=== PATIENT | female | born 1970 ===

== ENCOUNTER 2020-07-05 16:44 | Emergency (ER) | payer SELFPAY ==
[~2020-07-05] VITALS: Ht 162.6 cm; Wt 81.6 kg
[2020-07-05 17:59] LABS: APPEARANCE,URINE CLOUDY; BILIRUBIN, URINE NEGATIVE (NEGATIVE); GLUCOSE, URINE (UA) NEGATIVE (NEGATIVE); KETONES,URINE NEGATIVE (NEGATIVE); LEUKOCYTE ESTERASE ,URINE 1+ (NEGATIVE); NITRITE,URINE NEGATIVE (NEGATIVE); PH,URINE 6.5 (4.5-8.0); PROTEIN,URINE 2+ (NEGATIVE); UROBILINOGEN,URINE NORMAL MG/DL (0.0-1.0)
[2020-07-05 18:02] LABS: COLOR,URINE RED
[2020-07-05 18:06] LABS: ANION GAP 7 mmol/L (5-15); BLOOD UREA NITROGEN 13 mg/dL (7-18); CALCIUM 9.5 MG/DL (8.5-10.1); CARBON DIOXIDE 28 MMOL/L (21-32); CHLORIDE 104 MMOL/L (98-107); CREATININE 0.8 MG/DL (0.55-1.30); POTASSIUM 4.1 MMOL/L (3.5-5.1); SODIUM 139 MMOL/L (136-145)
[2020-07-05 18:09] LABS: BASOPHILS % (AUTO) 1.4 % (0.0-2.0); EOSINOPHILS % (AUTO) 1.4 % (0.0-3.0); HEMATOCRIT 25.4 % (37.0-47.0); HEMOGLOBIN 8.2 G/DL (12.0-16.0); LYMPHOCYTES % (AUTO) 40.9 % (20.0-45.0); MEAN CORPUSCULAR VOLUME 83 FL (80-99); NEUTROPHILS % (AUTO) 48.4 % (45.0-75.0); PLATELET COUNT 306 K/UL (150-450); RED BLOOD COUNT 3.07 M/UL (4.20-5.40); RED CELL DISTRIBUTION WIDTH 16.3 % (11.6-14.8); WHITE BLOOD COUNT 5.6 K/UL (4.8-10.8)
[2020-07-05 18:11] LABS: ALANINE AMINOTRANSFERASE 26 U/L (12-78); ALBUMIN 3.5 G/DL (3.4-5.0); ALBUMIN/GLOBULIN RATIO 1.1 (1.0-2.7); ALKALINE PHOSPHATASE 66 U/L (46-116); ASPARTATE AMINO TRANSFERASE 16 U/L (15-37); BILIRUBIN,TOTAL 0.2 MG/DL (0.2-1.0)
--- NOTE | 2020-07-05 19:10 | NUR ---
ED Nurse Note: Patient walked into ED c/o pelvic pain onset for the last 3 days
[2020-07-05 19:20] VITALS: BP 139/71
--- NOTE | 2020-07-05 20:02 | Emergency Room Report ---
History of Present Illness General Chief Complaint: Female Urogenital Problems Source: Patient Present Illness HPI 49-year-old female with no known significant past medical history here complaining of 10 days of heavy vaginal bleeding and clotting. Patient reports that she stopped having her menses 6 months ago. Has not yet followed with hog raiser. Reports that about 10 days ago she started having heavy bleeding and clotting and feeling fatigue. Has not taken medication for symptom relief. Denies any abdominal pain or cramping. Denies nausea vomiting diarrhea. Denies chest pain, shortness of breath and headache. Complains of occasional body aches. Denies fever and chills. Allergies: Coded Allergies: No Known Allergies (Unverified , 07/05/20) COVID-19 Screening Contact w/high risk pt: No Experienced COVID-19 symptoms?: No COVID-19 Testing performed INCINERATOR OPERATOR: No Patient History Past Medical History: see triage record Past Surgical History: none Pertinent Family History: none Now: No Reviewed Nursing Documentation: PMH: Agreed; PSxH: Agreed Nursing Documentation-PMH Past Medical History: No Stated History Review of Systems All Other Systems: negative except mentioned in HPI Physical Exam Vital Signs Date Time Temp Pulse Resp B/P (MAP) Pulse Ox O2 Delivery O2 Flow Rate FiO2 07/05/20 17:04 98.4 92 18 139/71 (93) 98 Room Air Sp02 EP Interpretation: reviewed, normal General Appearance: normal inspection, well appearing, no apparent distress, alert, GCS 15, non-toxic Head: normocephalic, atraumatic Eyes: bilateral eye normal inspection, bilateral eye PERRL ENT: hearing grossly normal, normal pharynx, no angioedema, normal voice Neck: supple, thyroid normal, no meningismus, no bony tend Respiratory: lungs clear, normal breath sounds, no rhonchi, no respiratory distress, no retraction, no accessory muscle use, no wheezing Cardiovascular #1: regular rate, rhythm, no edema Cardiovascular #2: 2+ carotid (R), 2+ carotid (L), 2+ radial (R), 2+ radial (L), 2+ dorsalis pedis (R), 2+ dorsalis pedis (L) Gastrointestinal: soft, no mass, no organomegaly, no peritonitis, no bruit, non-distended Rectal: deferred Musculoskeletal: back normal, normal range of motion, digits/nails normal, no calf tenderness, pelvis stable, no lower extremity edema, non-tender Neurologic: alert, motor strength/tone normal, oriented x3, sensory intact, responsive, speech normal Psychiatric: judgement/insight normal, memory normal, mood/affect normal, no suicidal/homicidal ideation Skin: no rash Lymphatic: no adenopathy Medical Decision Making PA Attestation All diagnoses and treatment plans were reviewed and discussed with my supervising physician Dr. Gracia Diagnostic Impression: Primary Impression: Uterine fibroid Additional Impression: Symptomatic anemia ER Course 49-year-old female with no known significant past medical history here complaining of 10 days of heavy vaginal bleeding and clotting. Patient reports that she stopped having her menses 6 months ago. Has not yet followed with hog raiser. Reports that about 10 days ago she started having heavy bleeding and clotting and feeling fatigue. Has not taken medication for symptom relief. Denies any abdominal pain or cramping. Denies nausea vomiting diarrhea. Denies chest pain, shortness of breath and headache. Complains of occasional body aches. Denies fever and chills. Ddx considered but are not limited to: Uterine fibroids, ovarian cyst, premenopausal changes, ovarian carcinoma, symptomatic anemia, asymptomatic anemia, Vital signs: are WNL, pt. is afebrile H&PE are most consistent with: Large uterine fibroid, symptomatic anemia ORDERS: UA, urine cx, CBC, CMP, type and screen, pelvic ultrasound, ferrous sulfate ED INTERVENTIONS: NS bolus After realizing the patient had to wait 4 hours to be observed after administration of 1 unit of blood, patient refused to get any transfusion. Hemoglobin is 8.2. Since patient is symptomatic with active vaginal bleeding he was recommended to receive a unit of blood however patient refused to do so and will follow up with hog raiser. Patient asked for some resources gynecology also prescription for ferrous sulfate provided. DISCHARGE: At this time pt. is stable for d/c to home. Will provide printed patient care instructions, and any necessary prescriptions. Care plan and follow up instructions have been discussed with the patient prior to discharge. Patient advised to return to the emergency room for worsening symptoms. CT/MRI/US Diagnostic Results CT/MRI/US Diagnostic Results : Imaging Test Ordered: Pelvic ultrasound Impression COMPARISON: No relevant prior studies available. FINDINGS: Uterus/cervix: The uterus measures approximately 13.1 x 7.4 x 6.1 cm. The uterus is diffusely heterogeneous. There are multiple probable fibroids. Left fundal region and the mass measures 3.7 x 3.2 x 3.5 cm. Additional mass that is partially exophytic on the right measures 9.0 x 8.7 may 0.2 cm. Small nabothian cysts are present in the cervix. There is nonspecific thickening of the endometrium measuring approximately 12.5 mm. Small amount of fluid in the endocervical canal. Recommend nonemergent OVEN LOADER consultation. Right ovary: The right ovary was not visualized. Left ovary: The left ovary measures 2.6 x 2.2 x 2.8 cm. Negative for left ovarian torsion. Free fluid: No significant free fluid identified. Last Vital Signs Date Time Temp Pulse Resp B/P (MAP) Pulse Ox O2 Delivery O2 Flow Rate FiO2 07/05/20 19:20 98.4 79 18 139/71 98 Room Air Disposition: HOME, SELF-CARE Condition: Stable Scripts Ferrous Sulfate* (FERROUS SULFATE*) 325 Mg Tablet 325 MG ORAL TWICE A DAY for SUPPLEMENT, #60 TAB 0 Refills Prov: Kevin Johns 07/05/20 Referrals: NOT CHOSEN IPA/,REFERRING (PCP) Patient Instructions: Iron Deficiency Anemia, Adult, Uterine Fibroids, [id number] Additional Instructions: Take medication as directed, follow-up with hog raiser, increase oral hydration, worsening symptoms return to the emergency room Kevin Johns Jul 05, 2020 20:02
[2020-07-05] MEDS ORDERED: FERROUS SULFAT325 MG ORAL (20:05)
--- NOTE | 2020-07-05 20:08 | Diagnostic Imaging Report ---
EXAM: US Pelvis Transabdominal and Transvaginal, Complete CLINICAL HISTORY: PAIN TECHNIQUE: Real-time complete transabdominal and transvaginal pelvic ultrasound with image documentation. Transvaginal imaging was used for better evaluation of the endometrium and adnexa. COMPARISON: No relevant prior studies available. FINDINGS: Uterus/cervix: The uterus measures approximately 13.1 x 7.4 x 6.1 cm. The uterus is diffusely heterogeneous. There are multiple probable fibroids. Left fundal region and the mass measures 3.7 x 3.2 x 3.5 cm. Additional mass that is partially exophytic on the right measures 9.0 x 8. 7 may 0.2 cm. Small nabothian cysts are present in the cervix. There is nonspecific thickening of the endometrium measuring approximately 12.5 mm. Small amount of fluid in the endocervical canal. Recommend nonemergent ADMINISTRATIVE ACCOUNTANT consultation. Right ovary: The right ovary was not visualized. Left ovary: The left ovary measures 2.6 x 2.2 x 2.8 cm. Negative for left ovarian torsion. Free fluid: No significant free fluid identified.
[2020-07-05 20:16] VITALS: BP 139/71
--- NOTE | 2020-07-05 20:16 | NUR ---
ER DISCHARGE NOTE: Patient is cleared to be discharged per ERMD, pt is aox4, on room air, with stable vital signs. pt was given dc and prescription instructions, pt was able to verbalize understanding, pt id band and iv site removed without complications. pt is able to ambulate with steady gait. pt took all belongings.
== END 2020-07-05 20:16 | disposition home or self-care (01) ==
LOC: EMR 18:10
DX: D25.9 Leiomyoma of uterus, unspecified (principal); D64.89 Other specified anemias
CPT/HCPCS: 36415; 76830; 76856; 80053; 81003; 81025; 85025; 86850; 86900; 86901; 86920; 96360; 99284